=== PATIENT | female | born 1960 | race Caucasian/White ===

== ENCOUNTER 2017-08-18 11:48 | Inpatient (IN) | payer OTHER ==
[~2017-08-18] VITALS: Ht 170.2 cm; Wt 137.6 kg
[2017-08-18] MEDS ORDERED: SODIUM CHLORIDE 0.9% FLUSH 10 ML FLUSH IV FLUSH PRN (13:30)
[2017-08-18] MEDS ORDERED: ONDANSETRON HCL 4 MG/2 ML VIAL IVP PRN (13:30)
[2017-08-18] MEDS ORDERED: NALOXONE HCL 0.4 MG/ML AMP IV PUSH PRN (13:30)
[2017-08-18 15:44] VITALS: PULSE 93
[2017-08-18] MEDS ORDERED: GLUCAGON 1 MG/ML VIAL OTHER PRN ×2 (15:45→16:15)
[2017-08-18] MEDS ORDERED: DEXTROSE 50% IN WATER 50 ML VIAL(D50) IV PUSH PRN ×2 (15:45→16:15)
[2017-08-18 16:00] VITALS: BP 182/83; PULSE 96; RESP 18; TEMP 98.1; O2SAT 96
--- NOTE | 2017-08-18 16:22 | HHI.HP ---
[facility] Primary Care Physician No Primary Care Physician Admission Diagnosis Diagnoses: Travel History International Travel<30 Days: No Contact w/Intl Traveler <30 Da: No Traveled to Known Affected Are: No History of Present Illness Mrs. Jiang is a 57-year-old female. This morning she awoke with difficulty speaking and confusion. This happened approximately 8 AM. Symptoms initially improved and patient did not seek immediate medical attention. However symptoms worsen again in the morning and patient sought medical attention around lunchtime. CT of brain obtained in the ER at the [facility] shows no evidence of stroke. However symptoms of difficulty speaking are persisting. Confusion has improved. She has no previous history of CVA and has no family history of CVA. At baseline she takes no medications. Her blood sugars are 297 today. She was not aware of any history of high blood sugars and this does not run in the family. Her only other complaint is left lower extremity tenderness, heat, and redness. Review of Systems Constitutional: DENIES: Fatigue, Fever, Chills, Night Sweats Eyes: DENIES: Blurred vision, Diplopia, Eye inflammation, Eye pain Ears, nose, mouth, throat: DENIES: Tinnitus, Hearing loss, Vertigo, Nasal discharge Respiratory: DENIES: Cough, Wheezing, Shortness of breath Cardiovascular: DENIES: Chest pain, Palpitations, Syncope Gastrointestinal: DENIES: Abdominal pain, Black stools, Bloody stools, Constipation Musculoskeletal: DENIES: Joint pain, Muscle aches, Stiffness, Joint Swelling Integumentary: DENIES: Abnormal pigmentation, Pruritus, Rash, Nail changes, Breast masses, Breast skin changes, Nipple discharge Hematologic/lymphatic: DENIES: Bruising, Lymphadenopathy Immunologic/allergic: DENIES: Eczema, Urticaria Neurologic: COMPLAINS OF: Localized weakness, Speech Problems, DENIES: Abnormal gait, Headache, Paresthesias Psychiatric: COMPLAINS OF: Confusion, DENIES: Anxiety, Depression Past Family Social History Past Medical History None reported Past Surgical History None reported Reported Medications None Allergies: Coded Allergies: No Known Allergies (Unverified , 08/18/17) Family History No positive medical family history Social History Patient denies smoking, drinking alcohol, or illicit drug abuse Physical Exam Vital Signs Vital Signs Date Time Temp Pulse Resp B/P (MAP) Pulse Ox O2 Delivery O2 Flow Rate FiO2 08/18/17 15:44 93 Physical Exam GENERAL: NAD, A&Ox3, slurred speech HEAD: Normocephalic. NECK: Supple, trachea midline. No lymphadenopathy. EYES: No scleral icterus. No injection or drainage. CARDIOVASCULAR: Regular rate and rhythm without murmurs, gallops, or rubs. RESPIRATORY: Breath sounds equal bilaterally. No accessory muscle use. GASTROINTESTINAL: Abdomen soft, non-tender, nondistended. MUSCULOSKELETAL: No cyanosis, or edema. SKIN: Warm and dry. NEURO: No focal neurological deficitis. Caprini VTE Risk Assessment Caprini VTE Risk Assessment: No/Low Risk (score <= 1) Caprini Risk Assessment Model Point Value = 1 Point Value = 2 Point Value = 3 Point Value = 5 Age 41-60 Minor surgery BMI > 25 kg/m2 Swollen legs Varicose veins or History of unexplained or recurrent spontaneous Oral contraceptives or hormone replacement Sepsis (< 1 month) Serious lung disease, including pneumonia (< 1 month) Abnormal pulmonary function Acute myocardial infarction Congestive heart failure (< 1 month) History of inflammatory bowel disease Medical patient at bed rest Age 61-74 Arthroscopic surgery Major open surgery (> 45 min) Laparoscopic surgery (> 45 min) Malignancy Confined to bed (> 72 hours) Immobilizing plaster cast Central venous access Age >= 75 History of VTE Family history of VTE Factor V Leiden Prothrombin [id number] Lupus anticoagulant Anticardiolipin antibodies Elevated serum homocysteine Heparin-induced thrombocytopenia Other congenital or acquired thrombophilia Stroke (< 1 month) Elective arthroplasty Hip, pelvis, or leg fracture Acute spinal cord injury (< 1 month) Prophylaxis Regimen Total Risk Factor Score Risk Level Prophylaxis Regimen 0-1 Low Early ambulation 2 Moderate Order ONE of the following: *Sequential Compression Device (SCD) *Heparin 5000 units SQ BID 3-4 Higher Order ONE of the following medications: *Heparin 5000 units SQ TID *Enoxaparin/Lovenox 40 mg SQ daily (WT < 150 kg, CrCl > 30 mL/min) *Enoxaparin/Lovenox 30 mg SQ daily (WT < 150 kg, CrCl > 10-29 mL/min) *Enoxaparin/Lovenox 30 mg SQ BID (WT < 150 kg, CrCl > 30 mL/min) AND/OR *Sequential Compression Device (SCD) 5 or more Highest Order ONE of the following medications: *Heparin 5000 units SQ TID (Preferred with Epidurals) *Enoxaparin/Lovenox 40 mg SQ daily (WT < 150 kg, CrCl > 30 mL/min) *Enoxaparin/Lovenox 30 mg SQ daily (WT < 150 kg, CrCl > 10-29 mL/min) *Enoxaparin/Lovenox 30 mg SQ BID (WT < 150 kg, CrCl > 30 mL/min) AND *Sequential Compression Device (SCD) Assessment and Plan Problem List: (1) CVA (cerebral vascular accident) ICD Code: I63.9 - Cerebral infarction, unspecified Assessment and Plan 57-year-old female admitted secondary to acute onset of dysarthria and confusion , suspicious for CVA. CVA Consult neurology Aspirin provided MRI of brain ordered Carotid ultrasound ordered Echocardiogram ordered Speech therapy evaluation ordered Follow neurologically Neuro checks Left lower extremity pain Obtain ultrasound to evaluate for left lower extremity DVT DVT prophylaxis SCDs Physician Certification 2 Midnight Certification Type: Admission for Inpatient Services Order for Inpatient Services The services are ordered in accordance with Medicare regulations or non- Medicare payer requirements, as applicable. In the case of services not specified as inpatient-only, they are appropriately provided as inpatient services in accordance with the 2-midnight benchmark. Estimated LOS (days): 3 days is the estimated time the patient will need to remain in the hospital, assuming treatment plan goals are met and no additional complications. Post-Hospital Plan: Home Donavan Ventura MD Aug 18, 2017 16:22
[2017-08-18] MEDS ORDERED: INSULIN ASPART SUPPLEMENTAL SCALE SQ SCH (17:00)
[2017-08-18] MEDS: INSULIN ASPART SUPPLEMENTAL SCALE SQ SCH ×2 (17:26→21:25)
--- NOTE | 2017-08-18 18:08 | RADRPT ---
EXAM DATE/TIME: 08/18/2017 17:56 [facility] COMPARISON: CT BRAIN W/O CONTRAST, August 18, 2017, 12:21. INDICATIONS : Dysarthria. Facial droop. MEDICAL HISTORY : Obesity. SURGICAL HISTORY : Tubal ligation. ENCOUNTER: Initial ACUITY: 1 day PAIN SCORE: 0/10 LOCATION: cranial TECHNIQUE: Multiplanar, multisequence MRI of the brain was performed without contrast. FINDINGS: CEREBRUM: There is a oval focal area of restricted diffusion in the left periventricular gabriel radiata measuri ng 2.6 cm with only minimal T2 prolongation. No evidence of blood products within. The remainder of the supratentorial brain is intact and stop no evidence of intra-or extra axial blood. No evidence of mass effect. The ventricles are normal in size. POSTERIOR FOSSA: The cerebellum and brainstem are intact. The 4th ventricle is midline. The cerebellopontine angle is unremarkable. The cerebellar tonsils are normal in position. EXTRACRANIAL: The visualized portions of the orbits and paranasal sinuses are unremarkable. CONCLUSION: 1. Acute nonhemorrhagic white matter infarction the medial left gabriel radiata. 2. No significant mass effect or surrounding edema. Rishi Eason MD on August 18, 2017 at 18:03 Board Certified Radiologist. This report was verified electronically.
[2017-08-18 20:00] VITALS: BP 172/82; PULSE 93; RESP 20; TEMP 97.8; O2SAT 93
[2017-08-18] MEDS: DOCUSATE SODIUM 50 MG/SENNA 8.6 MG TAB PO SCH (21:00)
[2017-08-18] MEDS: SODIUM CHLORIDE 0.9% FLUSH 10 ML FLUSH IV FLUSH SCH (21:25)
[2017-08-18 23:00] VITALS: PULSE 90
[2017-08-19] VITALS (8 sets, daily range): BP systolic 145–197; BP diastolic 67–92; PULSE 82–113; RESP 14–18; TEMP 97.4–98.5; O2SAT 93–98
[2017-08-19 07:00] LABS: BASOPHIL # 0.1 TH/MM3 (0-0.2); BASOPHIL % 0.6 % (0.0-2.0); EOSINOPHIL # 0.1 TH/MM3 (0-0.4); EOSINOPHIL % 0.6 % (0.0-4.0); HEMATOCRIT 45.3 % (35.0-46.0); LYMPHOCYTE # 1.7 TH/MM3 (1.0-4.8); MEAN CELL VOLUME 89.3 FL (80.0-100.0); MEAN CORPUSCULAR HEMOGLOBIN 29.6 PG (27.0-34.0); MEAN CORPUSCULAR HGB CONC 33.2 % (32.0-36.0); MEAN PLATELET VOLUME 7.8 FL (7.0-11.0); MONO % 7.6 % (0.0-8.0); MONOCYTE # 0.7 TH/MM3 (0-0.9); NEUT % 73.2 % (16.0-70.0); PLATELET COUNT 189 TH/MM3 (150-450); RED BLOOD COUNT 5.08 MIL/MM3 (4.00-5.30); RED CELL DISTRIBUTION WIDTH 11.7 % (11.6-17.2); WHITE BLOOD COUNT 9.6 TH/MM3 (4.0-11.0)
[2017-08-19 07:04] LABS: CHLORIDE 103 MEQ/L (98-107); SODIUM (NA) 138 MEQ/L (136-145)
[2017-08-19 07:12] LABS: ALBUMIN 3.2 GM/DL (3.4-5.0); BICARBONATE 25.9 MEQ/L (21.0-32.0); CALCIUM 8.6 MG/DL (8.5-10.1)
[2017-08-19 07:13] LABS: BLOOD UREA NITROGEN 10 MG/DL (7-18); GLUCOSE,RANDOM 239 MG/DL (74-106)
[2017-08-19 07:15] LABS: ALT (GPT) 19 U/L (10-53); AST (GOT) 11 U/L (15-37)
[2017-08-19 07:16] LABS: CREATININE 0.42 MG/DL (0.50-1.00); GLOMERULAR FILTRATION RATE 156 ML/MIN (>89)
[2017-08-19 07:17] LABS: TOTAL BILIRUBIN ADULT 1.4 MG/DL (0.2-1.0); TOTAL PROTEIN 6.7 GM/DL (6.4-8.2)
[2017-08-19 07:18] LABS: ALKALINE PHOSPHATASE 87 U/L (45-117)
[2017-08-19] MEDS: INSULIN ASPART SUPPLEMENTAL SCALE SQ SCH ×4 (08:00→21:34)
[2017-08-19] MEDS: ASPIRIN 81 MG CHEW TAB PO SCH (09:31)
[2017-08-19] MEDS: DOCUSATE SODIUM 50 MG/SENNA 8.6 MG TAB PO SCH ×2 (09:31→21:33)
[2017-08-19] MEDS: SODIUM CHLORIDE 0.9% FLUSH 10 ML FLUSH IV FLUSH SCH ×2 (09:31→21:33)
--- NOTE | 2017-08-19 10:57 | RADRPT ---
EXAM DATE/TIME: 08/19/2017 09:57 [facility] COMPARISON: No previous studies available for comparison. INDICATIONS : Bilateral leg swelling. MEDICAL HISTORY : CVA. Hypertension. SURGICAL HISTORY : Tubal ligation. ENCOUNTER: Initial ACUITY: 1 day PAIN SCORE: 0/10 LOCATION: Bilateral leg. TECHNIQUE: Venous ultrasound of the left and right leg was performed from the inguinal ligament to the proximal calf. Real-time, color Doppler and spectral tracing, compression and augmentation techniques were us ed. FINDINGS: RIGHT LEG: There is normal compressibility of the deep venous system from the inguinal region to the proximal ca lf. No echogenic clot is seen in the lumen of the common femoral, femoral, popliteal, and posterior tibial veins. There is a normal response of the venous system to proximal and distal augmentation an d respiration. LEFT LEG: There is normal compressibility of the deep venous system from the inguinal region to the proximal ca lf. No echogenic clot is seen in the lumen of the common femoral, femoral, popliteal, and posterior tibial veins. There is a normal response of the venous system to proximal and distal augmentation an d respiration. CONCLUSION: Normal examination. Douglas Pritchard MD on August 19, 2017 at 10:55 Board Certified Radiologist. This report was verified electronically.
--- NOTE | 2017-08-19 11:08 | RADRPT ---
EXAM DATE/TIME: 08/19/2017 09:56 [facility] COMPARISON: No previous studies available for comparison. INDICATIONS : Transient ischemic attack. MEDICAL HISTORY : CVA. Hypertension. SURGICAL HISTORY : Tubal ligation. ENCOUNTER: Initial ACUITY: 1 day PAIN SCORE: 0/10 LOCATION: Bilateral neck PEAK SYSTOLIC VELOCITIES (cm/sec): ICA/CCA RATIO: Right: 0.9 Left: 1.3 ICA: Right: 94 Left: 119 CCA: Right: 102 Left: 90 ECA: Right: 194 Left: 149 VERTEBRAL: Right: 68 antegrade Left: 72 antegrade Elevated flow velocities and ICA/CCA ratios have been found to correlate with increased degrees of vessel stenosis, calculated as percentage of diameter relative to a normal segment of distal ICA/CCA FINDINGS: RIGHT CAROTID: No significant stenosis is visualized. The waveforms are within normal limits. LEFT CAROTID: No significant stenosis is visualized. The waveforms are within normal limits. VERTEBRAL ARTERIES: Antegrade flow is seen in both vertebral arteries. MISCELLANEOUS: None. CONCLUSION: 1. Mild bilateral carotid plaque without significant flow-limiting stenosis. 2. Antegrade vertebral artery flow bilaterally. Shahriar Kwan MD on August 19, 2017 at 11:04 Board Certified Radiologist. This report was verified electronically.
[2017-08-19 11:34] LABS: CHOLESTEROL 274 MG/DL (120-200); TRIGLYCERIDES 205 MG/DL (42-150)
[2017-08-19 11:35] LABS: HDL CHOLESTEROL 39.7 MG/DL (40.0-60.0); LDL CHOLESTEROL 193 MG/DL (0-99)
--- NOTE | 2017-08-19 12:56 | ECHRPT ---
Indication: PERICARDIAL EFFUSION/THROMBUS CONCLUSIONS The transthoracic study is normal by two-dimensional, color flow imaging and Doppler interrogation. BP: 180 / 83 HR: 115 Rhythm: Sinus Technical Quality:Good FINDINGS LEFT VENTRICLE Normal left ventricular size and wall thickness. The left ventricular systolic function is normal wi th an estimated ejection fraction in the range of 60-65%. Left ventricular diastolic function parameters a re normal. RIGHT VENTRICLE Normal right ventricular size and systolic function. LEFT ATRIUM The left atrial size is normal. RIGHT ATRIUM The right atrial size is normal. ATRIAL SEPTUM Normal atrial septal thickness without atrial level shunting by limited color doppler interrogation. AORTA The aortic root and proximal ascending aorta are normal in size on limited imaging. MITRAL VALVE Structurally normal mitral valve. No mitral valve stenosis or regurgitation. AORTIC VALVE Trileaflet aortic valve. No aortic valve stenosis or regurgitation. TRICUSPID VALVE Structurally normal tricuspid valve. No tricuspid valve stenosis or regurgitation. PULMONARY VALVE The pulmonary valve is not well visualized. VESSELS The inferior vena cava is normal in size. PERICARDIUM No pericardial effusion. Lester Dietz MD, FACC (Electronically Signed) Final Date:19 August 2017 12:55
--- NOTE | 2017-08-19 14:19 | HHI.PR ---
Subjective Remarks No new symptoms today. Patient says her speech has improved slightly. She does not have any further episodes of confusion. Carotid ultrasound shows no significant stenosis. Echocardiogram shows no bowel disease or mural thrombus. Lower extremity ultrasound shows no DVT. Neurology consult and speech therapy evaluation are pending. Objective Vital Signs Date Time Temp Pulse Resp B/P (MAP) Pulse Ox O2 Delivery O2 Flow Rate FiO2 08/19/17 12:00 98.5 88 14 170/77 (108) 93 08/19/17 08:00 97.4 82 14 170/81 (110) 95 08/19/17 04:00 97.6 86 16 180/83 (115) 98 08/19/17 00:00 97.6 85 18 197/91 (126) 95 08/18/17 23:00 90 08/18/17 20:00 97.8 93 20 172/82 (112) 93 08/18/17 20:00 93 21 08/18/17 16:00 98.1 96 18 182/83 (116) 96 08/18/17 15:44 93 Result Diagram: 08/19/17 0625 08/19/17 0623 Objective Remarks GENERAL: NAD, A&Ox3, dysarthric speech HEAD: Normocephalic. NECK: Supple, trachea midline. No lymphadenopathy. EYES: No scleral icterus. No injection or drainage. CARDIOVASCULAR: Regular rate and rhythm without murmurs, gallops, or rubs. RESPIRATORY: Breath sounds equal bilaterally. No accessory muscle use. GASTROINTESTINAL: Abdomen soft, non-tender, nondistended. MUSCULOSKELETAL: No cyanosis, or edema. SKIN: Warm and dry. NEURO: No focal neurological deficitis. A/P Problem List: (1) CVA (cerebral vascular accident) ICD Code: I63.9 - Cerebral infarction, unspecified Assessment and Plan 57-year-old female admitted secondary to acute onset of dysarthria and confusion , suspicious for CVA. CVA Neurology following [place] therapy evaluation pending Continue daily aspirin MRI of brain shows acute CVA Carotid ultrasound shows no focal stenosis Echocardiogram shows no source of CVA Follow neurologically Neuro checks Left lower extremity pain Obtain ultrasound to evaluate for left lower extremity DVT DVT prophylaxis SCDs Discharge planning Possible discharge soon if cleared by speech therapy and neurology Donavan Ventura MD Aug 19, 2017 14:19
[2017-08-19 17:11] LABS: HEMOGLOBIN A1C 11.1 % (4.3-6.0)
[2017-08-20] VITALS (8 sets, daily range): BP systolic 144–196; BP diastolic 81–95; PULSE 80–100; RESP 16–18; TEMP 97.7–99.3; O2SAT 94–100
[2017-08-20] MEDS: SODIUM CHLORIDE 0.9% FLUSH 10 ML FLUSH IV FLUSH SCH (09:35)
[2017-08-20] MEDS: INSULIN ASPART SUPPLEMENTAL SCALE SQ SCH ×3 (09:35→17:23)
[2017-08-20] MEDS: ASPIRIN 81 MG CHEW TAB PO SCH (09:35)
[2017-08-20] MEDS: DOCUSATE SODIUM 50 MG/SENNA 8.6 MG TAB PO SCH (09:35)
--- NOTE | 2017-08-20 10:10 | HHI.FF ---
Face to Face Verification Diagnosis: (1) CVA (cerebral vascular accident) Speech Therapy Order: To Improve: Speech and communication skills Instructions: Dysarthria status post CVA I have seen patient Venus Jiang on 08/20/17. My clinical findings support the need for the requested home health care services because: Ltd mobility - disease progression I certify that my clinical findings support that this patient is homebound because: Unsafe to leave home unassisted Donavan Ventura MD Aug 20, 2017 10:10
[2017-08-20] MEDS ORDERED: ATOR40TA16 PO (10:14)
[2017-08-20] MEDS ORDERED: ASPI81 PO (10:14)
--- NOTE | 2017-08-20 10:23 | HHI.DS ---
Discharge Summary Admission Date Aug 18, 2017 at 14:45 Discharge Date: Aug 20, 2017 Admitting Diagnosis (1) CVA (cerebral vascular accident) ICD Code: I63.9 - Cerebral infarction, unspecified Procedures None Brief History - From Admission Mrs. Jiang is a 57-year-old female. This morning she awoke with difficulty speaking and confusion. This happened approximately 8 AM. Symptoms initially improved and patient did not seek immediate medical attention. However symptoms worsen again in the morning and patient sought medical attention around lunchtime. CT [facility] shows no evidence of stroke. However symptoms of difficulty speaking are persisting. Confusion has improved. She has no previous history of CVA and has no family history of CVA. At baseline she takes no medications. Her blood sugars are 297 today. She was not aware of any history of high blood sugars and this does not run in the family. Her only other complaint is left lower extremity tenderness, heat, and redness. CBC/BMP: 08/19/17 0625 08/19/17 0623 Significant Findings Laboratory Tests Test 08/19/17 06:23 08/19/17 06:25 Creatinine 0.42 MG/DL (0.50-1.00) Random Glucose 239 MG/DL (74-106) Albumin 3.2 GM/DL (3.4-5.0) Aspartate Amino Transf (AST/SGOT) 11 U/L (15-37) Total Bilirubin 1.4 MG/DL (0.2-1.0) Hemoglobin A1c 11.1 % (4.3-6.0) Triglycerides Level 205 MG/DL (42-150) Cholesterol Level 274 MG/DL (120-200) LDL Cholesterol 193 MG/DL (0-99) HDL Cholesterol 39.7 MG/DL (40.0-60.0) Neutrophils (%) (Auto) 73.2 % (16.0-70.0) Hospital Course Mrs. Jiang is a 57 year old female. She came into the hospital with Dysarthria related to a CVA. Initial confusion has been present at onset time at home, but has not been present during her entire stay here. She has had a work up without a found source for her CVA. Speech Therapy has not placed dietery restrictions. She would benefit for continuation of speech therapy for dysarthria. Daily aspirin and statin have been recommended. Patient is medically stable for discharge home today after Neurology clearance provided. Pt Condition on Discharge: Stable Discharge Disposition: Disch w/ Home Health Serv Discharge Time: <= 30 minutes Discharge Instructions DIET: Follow Instructions for: As Tolerated, No Restrictions Speech Therapy-Diet Recommends: Regular Activities you can perform: See Additionl Instruction Follow up Referrals: Neurology - As Per Protocol PCP Follow-up - 2 Weeks New Medications: Atorvastatin (Atorvastatin) 40 Mg Tab 40 MG PO HS for Cholesterol Management, #30 TAB 0 Refills Aspirin (Tgt Aspirin) 81 Mg Chw 81 MG PO DAILY for Blood Clot Prevention, #30 EA Donavan Ventura MD Aug 20, 2017 10:23
[2017-08-20] MEDS ORDERED: METF500T PO (14:18)
--- NOTE | 2017-08-20 19:29 | PD.AMA ---
Against Medical Advice Note Discharge Disposition: Against Medical Advice Pt Condition on Discharge: Stable AMA Statement Patient Venus Jiang has decided to leave the hospital against medical advice. This patient has the capacity to refuse care and understands the risks of leaving, including permanent disability and/or , and has had an opportunity to ask questions about her condition. The patient has been informed that she may return for care at any time, and follow up has been arranged/ advised. She did not want to wait to be cleared by neurology. Caryl Alas Aug 20, 2017 19:29
--- NOTE | 2017-08-20 19:36 | MB ---
cc: Christelle Nunez MD DATE OF CONSULT: She is 57 years old. She is seen in neurological consultation. This consult was initially called on 08/18, and it is not quite clear as to why the patient has not been seen, and I was contacted earlier today about this. Evidently, I am covering the neurology services today, but not on the . HISTORY OF PRESENT ILLNESS: She came to the [facility] and was admitted for a stroke evaluation. She came in because of some apparent confusion and dysarthric speech. Her speech has improved some. She was not confused and an MRI brain indicates the presence of an acute infarct in the left gabriel radiata. Carotid ultrasound was unremarkable. Lipid profile shows an LDL of 193, random blood sugar 239. CBC normal. She has been treated with baby aspirin and insulin sliding scale. PHYSICAL EXAMINATION: NEUROLOGIC: She was awake, alert, pleasant, oriented and has a moderately severe dysarthric speech. I would think she is having some difficulty swallowing, but I was told that speech therapy evaluated her and she has been able to swallow reasonably well. She is under a diet. She is markedly overweight, ambulating with some mild instability and this is perhaps a baseline. Her reflexes were diminished but present throughout, trace at the ankle. Plantar responses are flexor versus none. No obvious hemiparesis, but there is slight right facial weakness. Tongue seems to protrude well. ASSESSMENT: Left gabriel radiata acute infarct. Moderate to severe dysarthric speech, slight right facial and possible residual slight right hemiparesis. I will be discussing this with the nursing staff and preferably, patient ought to be started on a statin, upgrade to a full aspirin, obtain MRA head. Otherwise, aggressive medical care for blood sugar, obesity and cholesterol management. She needs outpatient evaluation for sleep apnea as well. Thank you for asking us to assist in her care. Christelle Nunez MD OFC/SB , 06:34 PM , 07:35 PM
[2017-08-20] MEDS ORDERED: ATORVASTATIN 40 MG TAB PO SCH (21:00)
== END 2017-08-20 19:09 | disposition left against medical advice (07) | DRG 65 ==
LOC: PHEDDLT 11:48 → PH3A 14:45
PROVIDERS: ADMIT Hospitalist; ATTEND Hospitalist
DX: I63.9 Cerebral infarction, unspecified (principal); Z68.42 Body mass index [BMI] 45.0-49.9, adult; R47.1 Dysarthria and anarthria; E66.3 Overweight; M79.605 Pain in left leg; R73.9 Hyperglycemia, unspecified
CPT/HCPCS: 70450; 70551; 71045; 80053; 80061; 82550; 82948; 83036; 84484; 85025; 85610; 85730; 93005; 93308; 93880; 93970; 96374; J1815